=== PATIENT | female | born 1995 | race Native Hawaiian/Other Pacific Islander ===

== ENCOUNTER 2017-03-09 17:58 | Inpatient (IN) | payer OTHER ==
[~2017-03-09] VITALS: Ht 157.5 cm; Wt 93.4 kg
[2017-03-09] MEDS ORDERED: NALBUPHINE 10 MG/ML AMP IVP PRN (18:20)
[2017-03-09] MEDS ORDERED: CARBOPROST 250 MCG/ML AMP IM PRN (18:20)
[2017-03-09] MEDS ORDERED: PROMETHAZINE 25 MG/ML VIAL IVP PRN (18:20)
[2017-03-09] MEDS ORDERED: METHYLERGONOVINE 0.2 MG/ML AMP IM SCH (18:20)
[2017-03-09] MEDS ORDERED: PREN-380 PO (18:28)
[2017-03-09] MEDS: LACTATED RINGERS 1,000 ML IV SCH ×2 (18:43→20:55)
[2017-03-09] MEDS ORDERED: OXYTOCIN 10 UNITS/ML VIAL IM SCH (19:00)
[2017-03-09] MEDS ORDERED: AMPICILLIN 2,000 MG in NACL 0.9% 100 ML IV SCH (19:00)
[2017-03-09] MEDS ORDERED: AMPICILLIN 2,000 MG VIAL ONE (19:02)
[2017-03-09 19:07] LABS: BASOPHILS # (AUTO) 0.1 K/uL (0.00-0.22); BASOPHILS % (AUTO) 0.9 % (0.0-2.0); EOSINOPHILS # (AUTO) 0.2 K/uL (0-0.4); HEMATOCRIT 39.5 % (36-48); LYMPHOCYTES # (AUTO) 1.6 K/uL (2.5-16.5); LYMPHOCYTES % (AUTO) 19.6 % (20.5-51.1); MEAN CORPUSCULAR HEMOGLOBIN 26 pg (27-31); MEAN CORPUSCULAR HGB CONC 33 g/dL (33-37); MEAN CORPUSCULAR VOLUME 79 fL (80-94); MONOCYTES # (AUTO) 0.4 K/uL (0.8-1.0); MONOCYTES % (AUTO) 4.7 % (1.7-9.3); NEUTROPHILS # (AUTO) 5.9 K/uL (1.8-7.7); NEUTROPHILS % (AUTO) 72.8 % (42.2-75.2); PLATELET COUNT (AUTO) 240 K/uL (140-450); RED CELL DISTRIBUTION WIDTH 14.2 % (11.6-13.7); WHITE BLOOD COUNT (AUTO) 8.2 K/uL (4.8-10.8)
[2017-03-09 19:22] LABS: BILIRUBIN,URINE NEGATIVE (NEGATIVE); BLOOD, URINE NEGATIVE (NEGATIVE); COLOR,URINE YELLOW (YELLOW); LEUKOCYTE ESTERASE ,URINE 2+ (NEGATIVE); NITRITE, URINE NEGATIVE (NEGATIVE); PH,URINE 6.5 (5.0-9.0); UGLUCOSE NEGATIVE (NEGATIVE)
[2017-03-09 19:23] LABS: APPEARANCE,URINE HAZY (CLEAR)
[2017-03-09 19:35] LABS: BARBITURATE, URINE NEG. ng/ml (NEG <=200); BENZODIAZEPINE, URINE NEG. ng/mL (NEG <=200); CANNABINOID, URINE NEG. ng/mL (NEG <=50); COCAINE, URINE NEG. ng/mL (NEG <=300); OPIATE, URINE NEG. ng/mL (NEG <=2000); PHENCYCLIDINE SCREEN,URINE NEG. ng/mL (NEG <=25)
[2017-03-09 19:38] LABS: ALBUMIN 2.6 g/dL (3.4-5.0); ANION GAP 16.2 (8-16); CARBON DIOXIDE 21.8 mmol/L (21-32); CREATININE 0.6 mg/dL (0.6-1.3); TOTAL BILIRUBIN 0.4 mg/dL (0.0-1.0)
[2017-03-09 19:50] LABS: RBC,URINE NONE SEEN /HPF (0-5)
[2017-03-09] MEDS: MISOPROSTOL 25 MCG TAB VG PRN (20:20)
[2017-03-09] MEDS ORDERED: MISOPROSTOL 25 MCG TAB ONE (20:21)
[2017-03-09] MEDS: AMPICILLIN 1,000 MG VIAL IVP SCH (23:08)
[2017-03-09] MEDS ORDERED: AMPICILLIN 1,000 MG VIAL ONE (23:13)
[2017-03-10] MEDS ORDERED: MISOPROSTOL 25 MCG TAB ONE (01:09)
[2017-03-10] MEDS: MISOPROSTOL 25 MCG TAB VG PRN (01:10)
[2017-03-10] MEDS: AMPICILLIN 1,000 MG VIAL IVP SCH ×6 (03:20→20:19)
[2017-03-10] MEDS ORDERED: AMPICILLIN 1,000 MG VIAL ONE ×5 (03:26→20:05)
[2017-03-10] MEDS ORDERED: NALBUPHINE HYDROCHLORIDE 10 MG/ML VIAL ONE (06:03)
[2017-03-10] MEDS ORDERED: PROMETHAZINE 25 MG/ML VIAL ONE (06:03)
[2017-03-10] MEDS: LACTATED RINGERS 1,000 ML IV SCH ×3 (06:07→20:21)
[2017-03-10] MEDS ORDERED: OXYTOCIN 20 UNITS/LR PREMIX 1,000 ML IV ONE (06:21)
[2017-03-10 06:25] LABS: RAPID PLASMA REAGIN NON-REACTIVE (Non Reactiv)
[2017-03-10] MEDS ORDERED: OXYTOCIN 20 UNITS in LACTATED RINGERS 1,000 ML IV SCH ×3 (07:00→23:15)
--- NOTE | 2017-03-10 08:36 | NUR ---
PATIENT HAS BEEN SCREENED AND CATEGORIZED LOW NUTRITION RISK. PATIENT WILL BE SEEN WITHIN 7 DAYS OF ADMISSION. 03/16/[address]
[2017-03-10] MEDS ORDERED: ROPIVACAINE 0.2%/NS PREMIX 250 ML EPI ONE (09:06)
[2017-03-10] MEDS ORDERED: MIDAZOLAM 2 MG/2 ML VIAL ONE (22:30)
[2017-03-10] MEDS ORDERED: LIDOCAINE 2% 1000 MG/50 ML VIAL INJ ONE (22:30)
[2017-03-10] MEDS ORDERED: MORPHINE PRES FREE 10 MG/10 ML AMP IV ONE (22:30)
[2017-03-10] MEDS ORDERED: OXYTOCIN 10 UNITS/ML VIAL ONE (22:41)
[2017-03-10] MEDS ORDERED: ceFAZolin 1,000 MG VIAL IVP ONE (22:45)
[2017-03-10] MEDS ORDERED: diphenhydrAMINE 50 MG/ML VIAL IVP PRN ×2 (23:10)
[2017-03-10] MEDS ORDERED: NALBUPHINE 10 MG/ML AMP IVP PRN (23:10)
[2017-03-10] MEDS ORDERED: ONDANSETRON 4 MG/2 ML VIAL IVP PRN ×2 (23:10)
[2017-03-10] MEDS ORDERED: NALOXONE 0.4 MG/ML VIAL IVP PRN ×3 (23:10)
[2017-03-10] MEDS ORDERED: MEPERIDINE 25 MG/ML SYR IVP PRN (23:10)
[2017-03-10] MEDS ORDERED: HYDROmorphone 1 MG/ML AMP IVP PRN (23:10)
[2017-03-11] MEDS ORDERED: KETOROLAC 30 MG/ML VIAL ONE (00:02)
[2017-03-11] MEDS ORDERED: OXYTOCIN 10 UNITS/ML VIAL ONE (00:02)
[2017-03-11] MEDS ORDERED: MEPERIDINE 25 MG/ML SYR ONE (00:02)
[2017-03-11] MEDS ORDERED: ONDANSETRON 4 MG/2 ML VIAL ONE (00:02)
[2017-03-11] MEDS ORDERED: oxyCODONE/APAP 5/325 MG 1 TAB TAB PO PRN (02:55)
[2017-03-11] MEDS ORDERED: MEASLES, MUMPS, AND RUBELLA 1 VIAL SQVAC PRN (02:55)
[2017-03-11] MEDS ORDERED: TEMAZEPAM 15 MG CAP PO PRN (02:55)
[2017-03-11] MEDS ORDERED: SIMETHICONE 80 MG TAB.CHEW PO PRN (02:55)
[2017-03-11] MEDS ORDERED: HYDROcodone/APAP 5/325 MG 1 TAB TAB PO PRN (02:55)
[2017-03-11] MEDS ORDERED: METHYLERGONOVINE 0.2 MG/ML AMP IM PRN (02:55)
[2017-03-11 05:57] LABS: BASOPHILS % (AUTO) 0.3 % (0.0-2.0); EOSINOPHILS # (AUTO) 0.3 K/uL (0-0.4); EOSINOPHILS % (AUTO) 1.8 % (0.0-4.0); HEMATOCRIT 35.1 % (36-48); HEMOGLOBIN 11.5 g/dL (12.0-16.0); LYMPHOCYTES # (AUTO) 1.5 K/uL (2.5-16.5); LYMPHOCYTES % (AUTO) 10.4 % (20.5-51.1); MEAN CORPUSCULAR HEMOGLOBIN 26 pg (27-31); MEAN CORPUSCULAR HGB CONC 33 g/dL (33-37); MEAN CORPUSCULAR VOLUME 79 fL (80-94); MONOCYTES # (AUTO) 0.8 K/uL (0.8-1.0); MONOCYTES % (AUTO) 5.5 % (1.7-9.3); NEUTROPHILS # (AUTO) 11.9 K/uL (1.8-7.7); PLATELET COUNT (AUTO) 208 K/uL (140-450); RED BLOOD CELL COUNT(AUTO) 4.42 MIL/uL (4.20-5.40); RED CELL DISTRIBUTION WIDTH 14.1 % (11.6-13.7); WHITE BLOOD COUNT (AUTO) 14.5 K/uL (4.8-10.8)
[2017-03-11] MEDS: KETOROLAC 30 MG/ML VIAL IM/IVP SCH ×3 (06:00→18:35)
[2017-03-11] MEDS ORDERED: SODIUM PHOSPHATE 118 ML ENEM RC SCH (09:00)
[2017-03-11] MEDS ORDERED: OXYTOCIN 20 UNITS/LR PREMIX 1,000 ML IV ONE (09:01)
--- NOTE | 2017-03-11 10:23 | NUR ---
AWAKE AND ALERT RESPONSIVE TO BRIAR WOOD SORTER VERBAL COMMANDS TOLERATED INCENTIVE SPIROMETRY THERAPY WELL WITHOUT ADVERSE REACTIONS NOTED ENCOURAGED PATIENT WITH ACKNOWLEDGEMENT TO USE INCENTIVE SPIROMETRY EVERY 1-2 HOURS WHILE AWAKE
[2017-03-11] MEDS: DOCUSATE SOD/SENNA 50/8.6 MG 1 TAB PO SCH (21:19)
[2017-03-12] MEDS: IBUPROFEN 800 MG TAB PO PRN ×3 (08:59→23:49)
[2017-03-12] MEDS: DOCUSATE SOD/SENNA 50/8.6 MG 1 TAB PO SCH (21:39)
== END 2017-03-13 15:15 | disposition home or self-care (01) | DRG 540 ==
LOC: MLD 17:58 → MFCC 03-10 22:10
PROVIDERS: ADMIT Obstetrics & Gynecology; ATTEND Obstetrics & Gynecology
PROC: 10D00Z1 Extraction of Products of Conception, Low, Open Approach (ICD-10-PCS; principal; 2017-03-10 22:15)
PROC: 3E0234Z Introduction of Serum, Toxoid and Vaccine into Muscle, Percutaneous Approach (ICD-10-PCS; 2017-03-12)
DX: O33.9 Maternal care for disproportion, unspecified (principal); E66.01 Morbid (severe) obesity due to excess calories; O99.214 Obesity complicating childbirth; O99.824 Streptococcus B carrier state complicating childbirth; O62.1 Secondary uterine inertia; Z37.0 Single live birth; Z3A.39 39 weeks gestation of pregnancy; Z23 Encounter for immunization; Z68.35 Body mass index [BMI] 35.0-35.9, adult
CPT/HCPCS: 36415; 51702; 59200; 80053; 80305; 81001; 82948; 85025; 86592; 86886; 86900; 86901; 87086; 90715; J0290; J0690; J1885; J2001; J2175; J2250; J2270; J2300; J2405; J2550; J2590; J2795; J7120

== ENCOUNTER 2021-08-11 05:43 | Inpatient (IN) | payer OTHER, SELFPAY ==
[~2021-08-11] VITALS: Ht 157.5 cm; Wt 100.2 kg
[~2021-08-11 05:43] MED LIST: PREN-380 PO
[2021-08-11] MEDS ORDERED: CARBOPROST 250 MCG/ML AMP IM PRN (06:25)
[2021-08-11] MEDS ORDERED: LACTATED RINGERS 1,000 ML IV SCH (06:25)
[2021-08-11] MEDS ORDERED: METHYLERGONOVINE 0.2 MG/ML AMP IM PRN ×2 (06:25→13:40)
[2021-08-11] MEDS ORDERED: CITRIC ACID/SODIUM CITRATE 30 ML UDC PO SCH (06:25)
[2021-08-11 07:09] VITALS: BP 122/74
[2021-08-11 07:20] LABS: BASOPHILS % (AUTO) 0.4 % (0.0-2.0); EOSINOPHILS # (AUTO) 0.2 K/uL (0-0.4); EOSINOPHILS % (AUTO) 1.8 % (0.0-4.0); HEMATOCRIT 35.5 % (36-48); HEMOGLOBIN 11.9 g/dL (12.0-16.0); LYMPHOCYTES # (AUTO) 1.9 K/uL (2.5-16.5); LYMPHOCYTES % (AUTO) 21.2 % (20.5-51.1); MEAN CORPUSCULAR HEMOGLOBIN 26 pg (27-31); MEAN CORPUSCULAR HGB CONC 34 g/dL (33-37); MONOCYTES # (AUTO) 0.6 K/uL (0.8-1.0); MONOCYTES % (AUTO) 6.1 % (1.7-9.3); NEUTROPHILS # (AUTO) 6.4 K/uL (1.8-7.7); NEUTROPHILS % (AUTO) 70.5 % (42.2-75.2); PLATELET COUNT (AUTO) 227 K/uL (140-450); RED BLOOD CELL COUNT(AUTO) 4.55 MIL/uL (4.20-5.40); RED CELL DISTRIBUTION WIDTH 16.5 % (11.6-13.7); WHITE BLOOD COUNT (AUTO) 9.1 K/uL (4.8-10.8)
[2021-08-11] MEDS ORDERED: ceFAZolin 1,000 MG VIAL ONE (07:24)
[2021-08-11] MEDS ORDERED: MORPHINE PRES FREE 10 MG/10 ML AMP IV ONE (07:28)
[2021-08-11 07:45] LABS: BILIRUBIN,URINE NEGATIVE (NEGATIVE); BLOOD, URINE NEGATIVE (NEGATIVE); COLOR,URINE YELLOW (YELLOW); LEUKOCYTE ESTERASE ,URINE 2+ (NEGATIVE); NITRITE, URINE NEGATIVE (NEGATIVE); PH,URINE 6.5 (5.0-9.0); UGLUCOSE NEGATIVE (NEGATIVE)
[2021-08-11] MEDS ORDERED: OXYTOCIN 20 UNITS in LACTATED RINGERS 1,000 ML IV SCH (07:50)
[2021-08-11] MEDS ORDERED: NALOXONE 0.4 MG/ML VIAL IVP PRN ×3 (07:50)
[2021-08-11] MEDS ORDERED: ONDANSETRON 4 MG/2 ML VIAL IVP PRN (07:50)
[2021-08-11] MEDS ORDERED: diphenhydrAMINE 50 MG/ML VIAL IVP PRN (07:50)
[2021-08-11] MEDS ORDERED: KETOROLAC 30 MG/ML VIAL IVP PRN (07:50)
[2021-08-11 07:54] LABS: ALBUMIN 2.5 g/dL (3.4-5.0); ANION GAP 14.1 (8-16); CARBON DIOXIDE 25.1 mmol/L (21-32); CREATININE 0.5 mg/dL (0.6-1.3); POTASSIUM 4.2 mmol/L (3.5-5.1); TOTAL BILIRUBIN 0.4 mg/dL (0.0-1.0)
--- NOTE | 2021-08-11 07:55 | NUR ---
ATTENDED IN L AND D, BABY GIRL ARRIVED WO INCIDENT - ORALLY SUCTIONED - NO RESP DISTRESS NOTED - RN CLEARED RT AFTER BABY STABILIZED.
[2021-08-11 08:12] LABS: APPEARANCE,URINE HAZY (CLEAR); RBC,URINE NONE SEEN /HPF (0-5)
[2021-08-11 08:13] LABS: CALCIUM OXALATE CRYSTALS,UR None Seen /HPF (None Seen); COARSE GRANULAR CASTS,URINE None Seen /LPF (None Seen); FINE GRANULAR CASTS,URINE None Seen /LPF (None Seen); HYALINE CASTS, URINE None Seen /LPF (None Seen); OTHER CASTS, URINE None Seen /LPF (None Seen); OTHER CRYSTALS,URINE None Seen /HPF (None Seen); RED BLOOD CELL CASTS,URINE None Seen /LPF (None Seen); TRICHOMONAS,URINE None Seen /HPF (None Seen); TRIPLE PHOSPHATE CRYSTAL,UR None Seen /HPF (None Seen); URIC ACID CRYSTALS,URINE None Seen /HPF (None Seen); URINE AMORPHOUS URATE None Seen /HPF (None Seen); WAXY CASTS,URINE None Seen /LPF (None Seen); YEAST,URINE None Seen /HPF (None Seen)
--- NOTE | 2021-08-11 08:51 | NUR ---
PATIENT HAS BEEN SCREENED AND CATEGORIZED LOW NUTRITION RISK. PATIENT WILL BE SEEN WITHIN 7 DAYS OF ADMISSION. 08/17/[address]
[2021-08-11] MEDS ORDERED: MEASLES, MUMPS, AND RUBELLA 1 VIAL SQVAC ONE (13:40)
[2021-08-11] MEDS ORDERED: PROMETHAZINE 25 MG/ML VIAL IVP PRN (13:40)
[2021-08-11] MEDS ORDERED: MEASLES, MUMPS, AND RUBELLA 1 VIAL SQVAC PRN (13:45)
[2021-08-11] MEDS ORDERED: OXYTOCIN 20 UNITS/LR PREMIX 1,000 ML IV ONE ×2 (14:02→22:27)
[2021-08-11] MEDS: OXYTOCIN 20 UNITS in LACTATED RINGERS 1,000 ML IV SCH ×2 (14:45→22:53)
[2021-08-12] MEDS: oxyCODONE/APAP 5/325 MG 1 TAB TAB PO PRN ×4 (05:36→23:40)
[2021-08-12 06:43] LABS: BASOPHILS % (AUTO) 0.3 % (0.0-2.0); EOSINOPHILS # (AUTO) 0.1 K/uL (0-0.4); EOSINOPHILS % (AUTO) 1.9 % (0.0-4.0); HEMOGLOBIN 10.9 g/dL (12.0-16.0); LYMPHOCYTES # (AUTO) 1.5 K/uL (2.5-16.5); LYMPHOCYTES % (AUTO) 19.2 % (20.5-51.1); MEAN CORPUSCULAR HEMOGLOBIN 27 pg (27-31); MEAN CORPUSCULAR HGB CONC 34 g/dL (33-37); MEAN CORPUSCULAR VOLUME 78.3 fL (80-94); MONOCYTES # (AUTO) 0.4 K/uL (0.8-1.0); MONOCYTES % (AUTO) 5.2 % (1.7-9.3); NEUTROPHILS # (AUTO) 5.5 K/uL (1.8-7.7); NEUTROPHILS % (AUTO) 73.4 % (42.2-75.2); PLATELET COUNT (AUTO) 189 K/uL (140-450); RED BLOOD CELL COUNT(AUTO) 4.08 MIL/uL (4.20-5.40); RED CELL DISTRIBUTION WIDTH 16.4 % (11.6-13.7); WHITE BLOOD COUNT (AUTO) 7.6 K/uL (4.8-10.8)
[2021-08-12] MEDS ORDERED: bisacodyL 10 MG SUPP RC SCH (09:00)
[2021-08-12] MEDS ORDERED: FLU VACCINE QS2021-22 0.5 ML SYR IMVAC ONE (21:00)
[2021-08-13] MEDS ORDERED: CAMERA MC ONE (03:25)
[2021-08-13] MEDS: oxyCODONE/APAP 5/325 MG 1 TAB TAB PO PRN ×3 (06:33→15:33)
== END 2021-08-13 17:50 | disposition home or self-care (01) | DRG 540 ==
LOC: MLD 05:43 → MFCC 09:11
PROVIDERS: ADMIT Obstetrics & Gynecology; ATTEND Obstetrics & Gynecology
PROC: 10D00Z1 Extraction of Products of Conception, Low, Open Approach (ICD-10-PCS; principal; 2021-08-11 07:30)
DX: O34.211 Maternal care for low transverse scar from previous cesarean delivery (principal); Z20.822 Contact with and (suspected) exposure to COVID-19; Z37.0 Single live birth; Z3A.39 39 weeks gestation of pregnancy
CPT/HCPCS: 36415; 51702; 80053; 81001; 85025; 86592; 86886; 86900; 86901; 87081; 87086; 90715; J0690; J1885; J2270; J2590; J7060; J7120